=== PATIENT | male | born 1995 | race Caucasian/White ===

== ENCOUNTER 2016-07-13 11:59 | Emergency (ER) | payer SELFPAY ==
[2016-07-13 12:15] VITALS: BP 119/69
--- NOTE | 2016-07-13 12:26 | ED Physician Documentation ---
Dyspnea - HISTORIAN Historian: patient - HPI Stated Complaint: cough, sinus drainage Chief Complaint: Fever Onset: days ago (10 days) Duration: continues in ED Initiating Event: upper respiratory illness Severity: moderate Associated Symptoms: chills, fever, sweating, bloody cough (has bben having some nose bleed), productive cough (occasional) Further Comments: yes - ROS CONST: no problems - PAST HX Lung Disease: none Other History: none Allergies/Adverse Reactions: Allergies Allergy/AdvReac Type Severity Reaction Status Date / Time No Known Drug Allergies Allergy Verified 07/13/16 12:09 Home Medications: Ambulatory Orders Medication Instructions Recorded Amoxicillin [Amoxil] 500 mg PO TID #30 capsule 07/13/16 Azithromycin [Zithromax] 250 mg PO QD #6 tablet 07/13/16 - SOCIAL HX Smoking History: non-smoker, secondhand (Works down all [place]) Alcohol Use: none Drug Use: none - FAMILY HX Family History: none - VITAL SIGNS Vital Signs: Vital Signs Temp Pulse Resp BP Pulse Ox 100.4 F H 87 20 119/69 99 07/13/16 12:10 07/13/16 12:10 07/13/16 12:10 07/13/16 12:10 07/13/16 12:10 - REVIEWED ASSESSMENTS Nursing Assessment Reviewed: Yes Vitals Reviewed: Yes Dyspnea Physical Exam - EXAM General Appearance: no acute distress, alert EENT: eye inspection normal, pharynx normal, no signs of dehydration, abnormal TM (left serrous), other (nares clear nasal drainage. Mucosa looks good. ) Neck: nml inspection Respiratory: no resp. distress, breath sounds nml, no pain on inspiration, speaks full sentences. No: respiratory distress CVS: reg. rate & rhythm, no murmur, no gallop, no friction rub, pulses full Abdomen: non-tender, no organomegaly, no distention Skin: color nml, no rash Neuro/Psych: oriented x3, CN's nml as tested, motor nml Discharge Clincal Impression: Otitis media, URI, acute Additional Instructions: Drink a lot of fluids. Take Amoxil three times a day for 10 days. Take some mucinex 600mg twice a day as needed for congestion. Work excuse given today. Home Medications: Ambulatory Orders Amoxicillin [Amoxil] 500 mg PO TID #30 capsule 07/13/16 Azithromycin [Zithromax] 250 mg PO QD #6 tablet 07/13/16 Condition: Stable Disposition: 01 HOME, SELF-CARE Decision to Admit: NO Date of Decison to Admit: 07/13/16 Decision Time: 12:39
== END 2016-07-13 12:48 | disposition home or self-care (01) ==
LOC: ED 11:59
DX: H65.02 Acute serous otitis media, left ear (principal); J06.9 Acute upper respiratory infection, unspecified
CPT/HCPCS: 99283